=== PATIENT | female | born 1965 | race Caucasian/White ===

== ENCOUNTER 2022-06-12 10:45 | Observation (INO) | payer BC ==
[2022-06-12] MEDS ORDERED: SODIUM CHLORIDE 0.9% 1,000 ML IV STA (11:20)
[2022-06-12] MEDS ORDERED: MAG HYDROX/AL HYDROX/SIMETH 30 ML, HYOSCYAMINE ELIXIR 10 ML, LIDOCAINE VISCOUS 2% 10 ML PO STA ×3 (11:21)
--- NOTE | 2022-06-12 11:24 | ED ---
Abdominal Pain HPI - General Chief Complaint: Abdominal Pain Stated Complaint: back pain Time Seen by Provider: 06/12/22 11:12 Source: patient, RN notes reviewed Mode of arrival: ambulatory Limitations: no limitations - History of Present Illness Initial Comments: 56-year-old female presents emergency department chief complaint of epigastric pain 3 weeks. She states that the pain has been constant for the past 3 weeks. She states nothing makes it worse. She reports that she was taking Motrin which occasionally helps but in the past 3 days she has developed nausea and vomiting in the Motrin no longer helps. Denies fever. Denies prior abdominal surgeries. She states that she drinks socially but hasn't been drinking since the pain started. She states she is otherwise healthy and takes no daily medications. - Related Data Home Medications Medication Instructions Recorded Confirmed No Known Home Medications 06/12/22 06/12/22 Allergies Allergy/AdvReac Type Severity Reaction Status Date / Time No Known Allergies Allergy Verified 06/12/22 15:29 Review of Systems ROS Statement: Those systems with pertinent positive or pertinent negative responses have been documented in the HPI. ROS Other: All systems not noted in ROS Statement are negative. Past Medical History Past Medical History: No Reported History History of Any Multi-Drug Resistant Organisms: None Reported Past Surgical History: No Surgical Hx Reported Past Psychological History: No Psychological Hx Reported Smoking Status: Former smoker Past Alcohol Use History: None Reported Past Drug Use History: None Reported General Exam Limitations: no limitations General appearance: alert, in no apparent distress Head exam: Present: atraumatic, normocephalic, normal inspection Eye exam: Present: normal appearance, PERRL, EOMI. Absent: scleral icterus, conjunctival injection, periorbital swelling Respiratory exam: Present: normal lung sounds bilaterally. Absent: respiratory distress, wheezes, rales, rhonchi, stridor Cardiovascular Exam: Present: normal rhythm, tachycardia GI/Abdominal exam: Present: distended, tenderness (RUQ ), normal bowel sounds. Absent: guarding, rebound, rigid Rectal exam: Present: heme (+) stool Back exam: Present: normal inspection Neurological exam: Present: alert, oriented X3 Psychiatric exam: Present: normal affect, normal mood Skin exam: Present: warm, dry, intact, normal color. Absent: rash Course Vital Signs 06/12/22 06/12/22 06/12/22 11:01 11:12 11:17 Temperature 98.2 F Pulse Rate 110 H 112 H Respiratory 18 18 Rate Blood Pressure 168/86 157/99 O2 Sat by Pulse 98 97 95 Oximetry 06/12/22 06/12/22 06/12/22 11:20 11:30 11:40 Temperature Pulse Rate 111 H 107 H 109 H Respiratory Rate Blood Pressure 157/99 157/99 163/85 O2 Sat by Pulse 96 93 L Oximetry 06/12/22 06/12/22 06/12/22 11:50 12:00 12:10 Temperature Pulse Rate 94 98 97 Respiratory Rate Blood Pressure 163/85 163/85 142/92 O2 Sat by Pulse 92 L 98 96 Oximetry 06/12/22 06/12/22 06/12/22 12:20 12:30 12:40 Temperature Pulse Rate 95 96 98 Respiratory Rate Blood Pressure 142/92 142/92 154/91 O2 Sat by Pulse 93 L 95 95 Oximetry 06/12/22 06/12/22 06/12/22 12:50 13:00 13:10 Temperature Pulse Rate 98 100 Respiratory Rate Blood Pressure 154/91 154/91 180/107 O2 Sat by Pulse 71 L 97 Oximetry 06/12/22 06/12/22 06/12/22 13:20 13:30 13:40 Temperature Pulse Rate Respiratory Rate Blood Pressure 180/107 154/112 139/83 O2 Sat by Pulse 94 L 95 92 L Oximetry 06/12/22 06/12/22 06/12/22 13:50 14:00 14:10 Temperature Pulse Rate Respiratory Rate Blood Pressure 139/83 139/83 142/96 O2 Sat by Pulse 92 L 95 95 Oximetry 06/12/22 06/12/22 06/12/22 14:20 14:30 14:40 Temperature Pulse Rate Respiratory Rate Blood Pressure 142/96 142/96 135/83 O2 Sat by Pulse 95 96 Oximetry 06/12/22 06/12/22 06/12/22 14:50 15:00 15:10 Temperature Pulse Rate Respiratory Rate Blood Pressure 135/83 135/83 179/95 O2 Sat by Pulse 97 Oximetry 06/12/22 06/12/22 06/12/22 15:20 15:30 15:40 Temperature Pulse Rate 114 H 117 H 116 H Respiratory Rate Blood Pressure 179/95 179/95 156/92 O2 Sat by Pulse 96 96 99 Oximetry 06/12/22 06/12/22 06/12/22 15:50 15:54 16:00 Temperature Pulse Rate 120 H 120 H 123 H Respiratory 18 Rate Blood Pressure 156/92 144/102 144/102 O2 Sat by Pulse 95 95 95 Oximetry 06/12/22 06/12/22 06/12/22 16:10 16:20 16:30 Temperature Pulse Rate 116 H 118 H Respiratory Rate Blood Pressure 143/89 143/89 143/89 O2 Sat by Pulse 95 95 95 Oximetry 06/12/22 06/12/22 06/12/22 16:40 16:50 17:00 Temperature Pulse Rate 115 H 116 H 123 H Respiratory Rate Blood Pressure 139/91 139/91 139/91 O2 Sat by Pulse 96 96 95 Oximetry 06/12/22 06/12/22 06/12/22 17:10 17:20 17:30 Temperature Pulse Rate 117 H 118 H 114 H Respiratory Rate Blood Pressure 140/100 140/100 140/100 O2 Sat by Pulse 96 94 L 94 L Oximetry 06/12/22 06/12/22 06/12/22 17:40 17:50 18:00 Temperature Pulse Rate 116 H 112 H 116 H Respiratory Rate Blood Pressure 154/87 154/87 154/87 O2 Sat by Pulse 95 95 94 L Oximetry 06/12/22 18:10 Temperature Pulse Rate 109 H Respiratory Rate Blood Pressure 140/97 O2 Sat by Pulse 97 Oximetry Medical Decision Making - Medical Decision Making Was pt. sent in by a medical professional or institution (, PA, PHARMACIST ASSISTANT, urgent care, hospital, or skilled nursing...) When possible be specific @ -No Did you speak to anyone other than the patient for history (EMS, parent, family, police, friend...)? What history was obtained from this source @ -No Did you review nursing and triage notes (agree or disagree)? Why? @ -I reviewed and agree with nursing and triage notes Were old charts reviewed (outside hosp., previous admission, EMS record, old EKG, old radiological studies, urgent care reports/EKG's, skilled nursing records)? Report findings @ -No old charts were reviewed Differential Diagnosis (chest pain, altered mental status, abdominal pain women, abdominal pain men, vaginal bleeding, weakness, fever, dyspnea, syncope, headache, dizziness, GI bleed, back pain, seizure, CVA, palpatations, mental health, musculoskeletal)? @ -Differential Abdominal Pain Women: Appendicitis, Cholecystitis, diverticulosis, ischemic bowel, pancreatitis, hepatitis, UTI, gastroenteritis, AAA, incarcerated hernia, bowel obstruction, constipation, inflammatory bowel, hepatitis, peptic ulcer disease, splenic infarction, perforated viscus, vulvitis, ovarian torsion, PID, kidney stone, placenta abruption, this is not meant to be an all-inclusive list] EKG interpreted by me (3pts min.). @ -None X-rays interpreted by me (1pt min.). @ -None done CT interpreted by me (1pt min.). 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 min.). @ -Ultrasound of the gallbladder showed hepatomegaly with multiple hypoechoic masses findings strongly suggestive of metastatic disease, gallstones with abnormal gallbladder wall thickening, acute cholecystitis cannot be excluded What testing was considered but not performed or refused? (CT, X-rays, U/S, labs)? Why? @ -None What meds were considered but not given or refused? Why? @ -None Did you discuss the management of the patient with other professionals (professionals i.e. , PA, PHARMACIST ASSISTANT, lab, RT, psych nurse, bilingual social worker, divorce lawyer, teacher, recruitment officer, child welfare caseworker)? Give summary @ -Yes, case was discussed with Dr. Rudolph who is willing to see the patient. Case discussed with Dr. Paul who is accepting of the admission. Was smoking cessation discussed for >3mins.? @ -No Was critical care preformed (if so, how long)? @ -No Were there social determinants of health that impacted care today? How? (Homelessness, low income, unemployed, alcoholism, drug addiction, t ransportation, low edu. Level, literacy, decrease access to med. care, detention, rehab)? @ -No Was there de-escalation of care discussed even if they declined (Discuss DNR or withdrawal of care, Hospice)? DNR status @ -No What co-morbidities impacted this encounter? (DM, HTN, Smoking, COPD, CAD, Cancer, CVA, ARF, Chemo, Hep., AIDS, mental health diagnosis, sleep apnea, morbid obesity)? @ -None Was patient admitted / discharged? Hospital course, mention meds given and route, prescriptions, significant lab abnormalities, going to OR and other pertinent info. @ -Admitted. Patient presented to the emergency department with chief complaint of upper abdominal pain 3 weeks. Patient was administered a GI cocktail, 1 L fluids, and Toradol 15mg. patient states that her pain improved after this. CBC showed WBC 16.3, hemoglobin 9.9, hematocrit 35.2, neutrophils 13.6; CMP showed sodium 135, potassium 4.0, BUN 12, creatinine 0.41, AST 46, AST 41, alk phos 164; UA showed 2+ ketones, large leukocyte esterase, WBCs 20; stool occult blood was positive; ultrasound of the gallbladder showed hepatomegaly with multiple hypoechoic masses, mild gallbladder wall thickening. 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 My attending, Dr. Guevara, discussed the case with Dr. Rudolph and Dr. Paul. Patient admitted for treatment of cholecystitis and urinary tract infection with consults to general surgery and oncology. Undiagnosed new problem with uncertain prognosis? @ -No Drug Therapy requiring intensive monitoring for toxicity (Heparin, Nitro, Insulin, Cardizem)? @ -No Were any procedures done? @ -No Diagnosis/symptom? @ -abdominal pain Acute, or Chronic, or Acute on Chronic? @ -Acute Uncomplicated (without systemic symptoms) or Complicated (systemic symptoms)? @ -default Side effects of treatment? @ -No Exacerbation, Progression, or Severe Exacerbation? @ -No Poses a threat to life or bodily function? How? (Chest pain, [place], [place], pneumonia, PE, COPD, DKA, ARF, appy, cholecystitis, CVA, Diverticulitis, Homicidal, Suicidal, threat to staff... and all critical care pts) @ - Diagnosis/symptom? @ -Urinary tract infection Acute, or Chronic, or Acute on Chronic? @ -Acute Uncomplicated (without systemic symptoms) or Complicated (systemic symptoms)? @ -default Side effects of treatment? @ -none Exacerbation, Progression, or Severe Exacerbation] @ -no Poses a threat to life or bodily function? @ -no - Lab Data Result diagrams: 06/12/22 11:37 06/12/22 11:37 Lab Results 06/12/22 06/12/22 06/12/22 Range/Units 11:37 11:37 11:37 WBC 16.3 H (3.8-10.6) k/uL RBC 5.28 (3.80-5.40) m/uL Hgb 9.9 L (11.4-16.0) gm/dL Hct 35.2 (34.0-46.0) % MCV 66.7 L (80.0-100.0) fL MCH 18.8 L (25.0-35.0) pg MCHC 28.2 L (31.0-37.0) g/dL RDW 18.2 H (11.5-15.5) % Plt Count 423 (150-450) k/uL MPV 7.8 Neutrophils % 84 % Lymphocytes % 7 % Monocytes % 5 % Eosinophils % 0 % Basophils % 0 % Neutrophils # 13.6 H (1.3-7.7) k/uL Lymphocytes # 1.1 (1.0-4.8) k/uL Monocytes # 0.9 (0-1.0) k/uL Eosinophils # 0.0 (0-0.7) k/uL Basophils # 0.0 (0-0.2) k/uL Hypochromasia Marked Anisocytosis Slight Microcytosis Marked PT (9.0-12.0) sec INR (<1.2) APTT (22.0-30.0) sec Sodium 135 L (137-145) mmol/L Potassium 4.0 (3.5-5.1) mmol/L Chloride 98 (98-107) mmol/L Carbon Dioxide 26 (22-30) mmol/L Anion Gap 11 mmol/L BUN 12 (7-17) mg/dL Creatinine 0.41 L (0.52-1.04) mg/dL Est GFR (CKD-EPI)AfAm >90 (>60 ml/min/1.73 sqM) Est GFR (CKD-EPI)NonAf >90 (>60 ml/min/1.73 sqM) Glucose 105 H (74-99) mg/dL Plasma Lactic Acid [place] 1.3 (0.7-2.0) mmol/L Calcium 8.6 (8.4-10.2) mg/dL Total Bilirubin 0.7 (0.2-1.3) mg/dL AST 46 H (14-36) U/L ALT 41 H (4-34) U/L Alkaline Phosphatase 164 H (38-126) U/L Total Protein 5.9 L (6.3-8.2) g/dL Albumin 3.1 L (3.5-5.0) g/dL Amylase 32 (30-110) U/L Lipase 22 L (23-300) U/L Urine Color Urine Appearance (Clear) Urine pH (5.0-8.0) Ur Specific [place] (1.001-1.035) Urine Protein (Negative) Urine Glucose (UA) (Negative) Urine Ketones (Negative) Urine Blood (Negative) Urine Nitrite (Negative) Urine Bilirubin (Negative) Urine Urobilinogen (<2.0) mg/dL Ur Leukocyte Esterase (Negative) Urine RBC (0-5) /hpf Urine WBC (0-5) /hpf Ur Squamous Epith Cells (0-4) /hpf Urine Bacteria (None) /hpf Urine Mucus (None) /hpf Stool Occult Blood (Negative) 06/12/22 06/12/22 06/12/22 Range/Units 13:15 13:16 14:32 WBC (3.8-10.6) k/uL RBC (3.80-5.40) m/uL Hgb (11.4-16.0) gm/dL Hct (34.0-46.0) % MCV (80.0-100.0) fL MCH (25.0-35.0) pg MCHC (31.0-37.0) g/dL RDW (11.5-15.5) % Plt Count (150-450) k/uL MPV Neutrophils % % Lymphocytes % % Monocytes % % Eosinophils % % Basophils % % Neutrophils # (1.3-7.7) k/uL Lymphocytes # (1.0-4.8) k/uL Monocytes # (0-1.0) k/uL Eosinophils # (0-0.7) k/uL Basophils # (0-0.2) k/uL Hypochromasia Anisocytosis Microcytosis PT 10.9 (9.0-12.0) sec INR 1.0 (<1.2) APTT 22.2 (22.0-30.0) sec Sodium (137-145) mmol/L Potassium (3.5-5.1) mmol/L Chloride (98-107) mmol/L Carbon Dioxide (22-30) mmol/L Anion Gap mmol/L BUN (7-17) mg/dL Creatinine (0.52-1.04) mg/dL Est GFR (CKD-EPI)AfAm (>60 ml/min/1.73 sqM) Est GFR (CKD-EPI)NonAf (>60 ml/min/1.73 sqM) Glucose (74-99) mg/dL Plasma Lactic Acid [place] (0.7-2.0) mmol/L Calcium (8.4-10.2) mg/dL Total Bilirubin (0.2-1.3) mg/dL AST (14-36) U/L ALT (4-34) U/L Alkaline Phosphatase (38-126) U/L Total Protein (6.3-8.2) g/dL Albumin (3.5-5.0) g/dL Amylase (30-110) U/L Lipase (23-300) U/L Urine Color Yellow Urine Appearance Cloudy H (Clear) Urine pH 5.5 (5.0-8.0) Ur Specific [place] 1.025 (1.001-1.035) Urine Protein Trace H (Negative) Urine Glucose (UA) Negative (Negative) Urine Ketones 2+ H (Negative) Urine Blood Negative (Negative) Urine Nitrite Negative (Negative) Urine Bilirubin Negative (Negative) Urine Urobilinogen 6.0 (<2.0) mg/dL Ur Leukocyte Esterase Large H (Negative) Urine RBC 4 (0-5) /hpf Urine WBC 20 H (0-5) /hpf Ur Squamous Epith Cells 3 (0-4) /hpf Urine Bacteria Rare H (None) /hpf Urine Mucus Many H (None) /hpf Stool Occult Blood Positive H (Negative) Disposition Clinical Impression: Abdominal pain, Urinary tract infection Disposition: ADMITTED IP TO THIS HOSP Condition: Stable Is patient prescribed a controlled substance at d/c from ED?: No Time of Disposition: 17:06
[2022-06-12 11:54] LABS: Anisocytosis Slight; Basophils % (A) 0 %; Eosinophils % (A) 0 %; HCT 35.2 % (34.0-46.0); HGB 9.9 gm/dL (11.4-16.0); Hypochromasia Marked; Lymphocytes # (A) 1.1 k/uL (1.0-4.8); Lymphocytes % (A) 7 %; MCH 18.8 pg (25.0-35.0); MCHC 28.2 g/dL (31.0-37.0); MCV 66.7 fL (80.0-100.0); Mean Platelet Volume 7.8; Microcytosis Marked; Monocytes # (A) 0.9 k/uL (0-1.0); Monocytes % (A) 5 %; Neutrophils # (A) 13.6 k/uL (1.3-7.7); Neutrophils % (A) 84 %; Platelet Count 423 k/uL (150-450); RBC 5.28 m/uL (3.80-5.40); RDW 18.2 % (11.5-15.5); WBC 16.3 k/uL (3.8-10.6)
[2022-06-12 12:18] LABS: ALT 41 U/L (4-34); AST 46 U/L (14-36); African American GFR (CKD) >90 (>60 ml/min/1.73 sqM); Albumin 3.1 g/dL (3.5-5.0); Alkaline Phosphatase 164 U/L (38-126); Amylase 32 U/L (30-110); Anion Gap 11 mmol/L; Blood Urea Nitrogen 12 mg/dL (7-17); Calcium 8.6 mg/dL (8.4-10.2); Carbon Dioxide 26 mmol/L (22-30); Chloride 98 mmol/L (98-107); Glucose 105 mg/dL (74-99); Lipase 22 U/L (23-300); Non-African American GFR(CKD) >90 (>60 ml/min/1.73 sqM); Sodium 135 mmol/L (137-145); Total Bilirubin 0.7 mg/dL (0.2-1.3); Total Protein 5.9 g/dL (6.3-8.2)
[2022-06-12] MEDS ORDERED: KETOROLAC 15 MG/ML 1 ML VIAL IVP STA (12:42)
[2022-06-12 14:00] LABS: Appearance,Urine Cloudy (Clear); Bacteria,Urine Rare /hpf; Bilirubin,Urine Negative (Negative); Blood,Urine Negative (Negative); Color,Urine Yellow; Glucose,Urine (UA) Negative (Negative); Ketones,Urine 2+ (Negative); Leukocyte Esterase,Urine Large (Negative); Mucus,Urine Many /hpf; Nitrite,Urine Negative (Negative); PH, Urine 5.5 (5.0-8.0); Protein,Urine Trace (Negative); RBC,Urine 4 /hpf (0-5); Specific Gravity,Urine 1.025 (1.001-1.035); Squamous Epithelial Cell,Urine 3 /hpf (0-4); WBC,Urine 20 /hpf (0-5)
--- NOTE | 2022-06-12 14:17 | US ---
EXAMINATION TYPE: US gallbladder DATE OF EXAM: 06/12/2022 COMPARISON: NONE CLINICAL INDICATION: Female, 56 years old with history of upper abd pain; Abdominal pain x 3 weeks. TECHNIQUE: Multiple sonographic images of the right upper quadrant are obtained. FINDINGS: EXAM MEASUREMENTS: Liver Length: 19.6 cm Gallbladder Wall: Focal area appears thickened measured in sagittal at 0.46 cm CBD: Obscured Right Kidney: 12.6 x 6.6 x 6.3 cm HEALTH POLICY ANALYST NOTES: *Limited due to gas. Pancreas: Not well seen. Portions seen appear hyperechoic. Liver: Enlarged. Numerous hypoechoic lesions were seen throughout the right and left liver. Larges t lesion seen was near the gallbladder and measures 5.0 x 3.9 x 3.3 cm. Gallbladder: *Multiple hyperechoic areas with shadowing seen throughout the gallbladder. Evidence for sonographic Carbone's sign: No CBD: Obscured Right Kidney: Slightly enlarged. No hydronephrosis or masses seen Visualized portion of Pancreas within normal limits. Visualized liver is enlarged with multiple heter ogeneous hypoechoic masses. The gallbladder has mobile shadowing intraluminal gallstones. There is mi ld gallbladder wall thickening up to 5 mm. No right-sided hydronephrosis. IMPRESSION: Hepatomegaly with multiple hypoechoic masses. Findings are strongly suggestive of metasta tic disease. Follow-up advised. Gallstones with abnormal gallbladder wall thickening. Acute cholecyst itis cannot be excluded. Consider HIDA scan evaluation.
[2022-06-12 14:58] LABS: Partial Thromboplastin Time 22.2 sec (22.0-30.0); Prothrombin Time 10.9 sec (9.0-12.0)
--- NOTE | 2022-06-12 15:11 | CT ---
EXAMINATION TYPE: CT abdomen pelvis w con CT DLP: 1675.9 mGycm, Automated exposure control for dose reduction was used. DATE OF EXAM: 06/12/2022 2:57 PM COMPARISON: Ultrasound 06/12/2022 CLINICAL INDICATION:Female, 56 years old with history of hepatic mass; abdominal pain TECHNIQUE: Axial CT of the abdomen and pelvis. Sagittal and coronal reformats were created on a [employer] workstation. Contrast used:100 mL of Isovue 300 with IV Contrast, Oral contrast used: without Oral Contrast FINDINGS: LOWER CHEST: Unremarkable ABDOMEN LIVER: r diffuse hypodensities are seen throughout the liver parenchyma largest in the right hepatic lobe measuring up to 3.3 x 2.7 cm. The largest in the left hepatic lobe measuring up to 3.4 x 2.9 cm. There is greater than 50 lesions. No evidence of ductal dilation. GALLBLADDER AND BILE DUCTS: Multiple gallstones are present. PANCREAS: Unremarkable. SPLEEN: Unremarkable. ADRENAL GLANDS: Unremarkable. KIDNEYS AND URETERS: Nonobstructing left 4 mm calculus no hydronephrosis. Left subcentimeter probable renal cysts. PELVIS BLADDER: Unremarkable REPRODUCTIVE: Uterus has a lobulated contour with large posterior fibroid change measuring up to 9.2 x 5.5 cm. ABDOMEN & PELVIS STOMACH AND BOWEL: No evidence of bowel obstruction. Diffuse gastric wall thickening along the lesser curvature measuring up to 3.6 centimeters in thickness and measuring at least 9.5 cm in length. PERITONEUM/RETROPERITONEUM: No evidence of pneumoperitoneum or free fluid. VASCULATURE: No evidence of aortic aneurysm. MUSCULOSKELETAL: No acute osseous abnormalities LYMPH NODES: Multiple suspicious lymph nodes are seen throughout the gastrohepatic ligament, example includes 12 mm series 201 image 19 additional 13 mm also present in short axis. Few lymph nodes anter ior to the stomach also present measuring 17 mm in short axis series 201 image 35. SOFT TISSUE/ABDOMINAL WALL: Unremarkable IMPRESSION: 1. Gastric wall thickening compatible with primary gastric malignancy with metastatic disease to [place] and intra-abdominal lymph nodes. 2. Cholelithiasis. 3. Fibroid uterus.
[2022-06-12] MEDS ORDERED: PANTOPRAZOLE 40 MG/10 ML VIAL IVP STA (15:28)
[2022-06-12] MEDS ORDERED: MORPHINE SULFATE 4 MG/ML SYRINGE IVP STA (15:28)
[2022-06-12] MEDS ORDERED: AMPICILLIN-SULBACTAM 3 GM in SODIUM CHLORIDE 0.9% 100 ML IVPB STA (15:29)
[2022-06-12] MEDS ORDERED: ONDANSETRON 4 MG/2 ML VIAL IVP STA (15:29)
[2022-06-12] MEDS ORDERED: NALOXONE 0.4 MG/ML 1 ML VIAL IV PRN (15:46)
[2022-06-12] MEDS ORDERED: ONDANSETRON 4 MG/2 ML VIAL IVP PRN (15:47)
[2022-06-12] MEDS ORDERED: MORPHINE SULFATE 4 MG/ML SYRINGE IV PRN (15:47)
[2022-06-12] MEDS: ACETAMINOPHEN TAB 325 MG TAB PO PRN (20:35)
[2022-06-13] MEDS: ACETAMINOPHEN TAB 325 MG TAB PO PRN ×2 (02:30→10:28)
[2022-06-13 08:04] VITALS: BP 148/88; PULSE 92; RESP 18; TEMP 97.7
[2022-06-13] MEDS ORDERED: PANTOPRAZOLE 40 MG/10 ML VIAL IVP SCH (09:00)
[2022-06-13] MEDS ORDERED: PROPOFOL 10 MG/ML 20 ML VIAL IV ONE (09:36)
[2022-06-13] MEDS ORDERED: IV FLUID CONTINUATION 1,000 ML IV ONE (09:43)
--- NOTE | 2022-06-13 09:43 | P.GSCN ---
History of Present Illness Consult date: 06/13/22 Reason for Consult: Epigastric pain History of present illness: 56-year-old female presents to the hospital complaining of epigastric pain that radiates to the back. She has had frequent episodes of vomiting. She was taken Motrin for about 3-4 weeks with some improvement initially but lately is worse. Patient came to the ER yesterday for evaluation. Labs showed anemia, leukocytosis, and elevated liver enzymes. CAT scan was performed showing multiple hepatic lesions and thickened gastric wall worrisome for metastatic malignancy. We were consulted for upper endoscopy. Review of Systems The patient denies any acute changes in vision or hearing, no dysphagia or odynophagia, no chest pain or shortness of breath, no dysuria or hematuria, no headache, no runny nose, no rectal bleeding or melena, no unexplained weight loss Past Medical History Past Medical History: No Reported History History of Any Multi-Drug Resistant Organisms: None Reported Past Surgical History: No Surgical Hx Reported Past Psychological History: No Psychological Hx Reported Smoking Status: Former smoker Past Alcohol Use History: None Reported Past Drug Use History: None Reported Medications and Allergies Home Medications Medication Instructions Recorded Confirmed Type No Known Home Medications 06/12/22 06/12/22 History Allergies Allergy/AdvReac Type Severity Reaction Status Date / Time No Known Allergies Allergy Verified 06/12/22 15:29 Surgical - Exam Vital Signs Temp Pulse Resp BP Pulse Ox 98.2 F 110 H 18 168/86 98 06/12/22 11:01 06/12/22 11:01 06/12/22 11:01 06/12/22 11:01 06/12/22 11:01 Physical exam: General: Well-developed, well-nourished HEENT: Normocephalic, sclerae nonicteric Abdomen: Mild epigastric tenderness, nondistended Extremities: No edema Neuro: Alert and oriented Results - Labs 06/12/22 11:37 06/12/22 11:37 Abnormal Lab Results - Last 24 Hours (Table) 06/12/22 06/12/22 06/12/22 Range/Units 11:37 11:37 13:15 WBC 16.3 H (3.8-10.6) k/uL Hgb 9.9 L (11.4-16.0) gm/dL MCV 66.7 L (80.0-100.0) fL MCH 18.8 L (25.0-35.0) pg MCHC 28.2 L (31.0-37.0) g/dL RDW 18.2 H (11.5-15.5) % Neutrophils # 13.6 H (1.3-7.7) k/uL Sodium 135 L (137-145) mmol/L Creatinine 0.41 L (0.52-1.04) mg/dL Glucose 105 H (74-99) mg/dL AST 46 H (14-36) U/L ALT 41 H (4-34) U/L Alkaline Phosphatase 164 H (38-126) U/L Total Protein 5.9 L (6.3-8.2) g/dL Albumin 3.1 L (3.5-5.0) g/dL Lipase 22 L (23-300) U/L Urine Appearance Cloudy H (Clear) Urine Protein Trace H (Negative) Urine Ketones 2+ H (Negative) Ur Leukocyte Esterase Large H (Negative) Urine WBC 20 H (0-5) /hpf Urine Bacteria Rare H (None) /hpf Urine Mucus Many H (None) /hpf Stool Occult Blood (Negative) 06/12/22 Range/Units 13:16 WBC (3.8-10.6) k/uL Hgb (11.4-16.0) gm/dL MCV (80.0-100.0) fL MCH (25.0-35.0) pg MCHC (31.0-37.0) g/dL RDW (11.5-15.5) % Neutrophils # (1.3-7.7) k/uL Sodium (137-145) mmol/L Creatinine (0.52-1.04) mg/dL Glucose (74-99) mg/dL AST (14-36) U/L ALT (4-34) U/L Alkaline Phosphatase (38-126) U/L Total Protein (6.3-8.2) g/dL Albumin (3.5-5.0) g/dL Lipase (23-300) U/L Urine Appearance (Clear) Urine Protein (Negative) Urine Ketones (Negative) Ur Leukocyte Esterase (Negative) Urine WBC (0-5) /hpf Urine Bacteria (None) /hpf Urine Mucus (None) /hpf Stool Occult Blood Positive H (Negative) Diabetes panel 05/04/23 Range/Units 11:37 Sodium 135 L (137-145) mmol/L Potassium 4.0 (3.5-5.1) mmol/L Chloride 98 (98-107) mmol/L Carbon Dioxide 26 (22-30) mmol/L BUN 12 (7-17) mg/dL Creatinine 0.41 L (0.52-1.04) mg/dL Glucose 105 H (74-99) mg/dL Calcium 8.6 (8.4-10.2) mg/dL AST 46 H (14-36) U/L ALT 41 H (4-34) U/L Alkaline Phosphatase 164 H (38-126) U/L Total Protein 5.9 L (6.3-8.2) g/dL Albumin 3.1 L (3.5-5.0) g/dL Calcium panel 06/12/22 Range/Units 11:37 Calcium 8.6 (8.4-10.2) mg/dL Albumin 3.1 L (3.5-5.0) g/dL Pituitary panel 06/12/22 Range/Units 11:37 Sodium 135 L (137-145) mmol/L Potassium 4.0 (3.5-5.1) mmol/L Chloride 98 (98-107) mmol/L Carbon Dioxide 26 (22-30) mmol/L BUN 12 (7-17) mg/dL Creatinine 0.41 L (0.52-1.04) mg/dL Glucose 105 H (74-99) mg/dL Calcium 8.6 (8.4-10.2) mg/dL Adrenal panel 06/12/22 Range/Units 11:37 Sodium 135 L (137-145) mmol/L Potassium 4.0 (3.5-5.1) mmol/L Chloride 98 (98-107) mmol/L Carbon Dioxide 26 (22-30) mmol/L BUN 12 (7-17) mg/dL Creatinine 0.41 L (0.52-1.04) mg/dL Glucose 105 H (74-99) mg/dL Calcium 8.6 (8.4-10.2) mg/dL Total Bilirubin 0.7 (0.2-1.3) mg/dL AST 46 H (14-36) U/L ALT 41 H (4-34) U/L Alkaline Phosphatase 164 H (38-126) U/L Total Protein 5.9 L (6.3-8.2) g/dL Albumin 3.1 L (3.5-5.0) g/dL Assessment and Plan (1) Abdominal pain Narrative/Plan: Will proceed with upper endoscopy at this time. Current Visit: Yes Status: Acute Code(s): R10.9 - UNSPECIFIED ABDOMINAL PAIN SNOMED Code(s): 59003568
--- NOTE | 2022-06-13 10:13 | P.PCN ---
Date of Procedure: 06/13/22 Procedure(s) Performed: Preoperative Dx: Epigastric pain, gastric mass Postoperative Dx: Large gastric mass Procedure: EGD with Bx Anesthesia: Sedation Endoscopist: Dr. Rudolph Specimens: Gastric mass Endoscopic Procedure: The patient was on the endoscopy table in the left decubitus position. The Olympus gastroscope was inserted into the oropharynx and passed under direct visualization to the region of the third portion of the duodenum. From that point the scope was slowly withdrawn inspecting all day[place] faces carefully. There were no neoplastic inflammatory or polypoid lesions throughout the duodenum. The pylorus was widely patent. The stomach was c Retroflexion revealed a normal hiatus. The esophagus was then carefully examined. There were no neoplastic inflammatory or polypoid lesions throughout the visualized esophagus. The patient was then taken to the recovery room in stable condition per anesthesia guidelines. Recommendations: Await biopsy results. Await oncologic evaluation. May resume regular diet. Will discuss findings with patient and family.
[2022-06-13] MEDS ORDERED: KETOROLAC 15 MG/ML 1 ML VIAL IVP PRN (11:37)
--- NOTE | 2022-06-13 12:18 | P.HPIM ---
History of Present Illness 46-year-old female came in with epigastric pain radiating to the back along with nausea. Patient underwent the upper GI endoscopy. Patient is found to have large gastric mass which was biopsied. Patient will be started on diet oncology will evaluated the patient. Patient also has mildly elevated AST and ALT 46 and 41 respectively. REVIEW OF SYSTEMS: CONSTITUTIONAL: No fever, no malaise, no fatigue. HEENT: No recent visual problems or hearing problems. Denied any sore throat. CARDIOVASCULAR: No chest pain, orthopnea, PND, no palpitations, no syncope. PULMONARY: No shortness of breath, no cough, no hemoptysis. GASTROINTESTINAL: As mentioned in HPI NEUROLOGICAL: No headaches, no weakness, no numbness. HEMATOLOGICAL: Denies any bleeding or petechiae. GENITOURINARY: Denies any burning micturition, frequency, or urgency. MUSCULOSKELETAL/RHEUMATOLOGICAL: Denies any joint pain, swelling, or any muscle pain. ENDOCRINE: Denies any polyuria or polydipsia. The rest of the 14-point review of systems is negative. PHYSICAL EXAMINATION: GENERAL: The patient is alert and oriented x3, not in any acute distress. Well developed, well nourished. HEENT: Pupils are round and equally reacting to light. EOMI. No scleral icterus. No conjunctival pallor. Normocephalic, atraumatic. No pharyngeal erythema. No thyromegaly. CARDIOVASCULAR: S1 and S2 present. No murmurs, rubs, or gallops. PULMONARY: Chest is clear to auscultation, no wheezing or crackles. ABDOMEN: Soft, nontender, nondistended, normoactive bowel sounds. No palpable organomegaly. MUSCULOSKELETAL: No joint swelling or deformity. EXTREMITIES: No cyanosis, clubbing, or pedal edema. NEUROLOGICAL: Gross neurological examination did not reveal any focal deficits. SKIN: No rashes. Assessment and plan -Epigastric abdominal pain nausea vomiting: Patient is found to have gastric mass also has cholelithiasis and unsure whether this is continued awaiting her to her symptoms. Patient will be discharged on Protonix and tramadol for pain and patient will follow-up with oncology as an outpatient. If patient is able to tolerate diet patient will be discharged to follow up with surgery surgery as an outpatient for cholelithiasis. -Leukocytosis reactive secondary to above Patient will be discharged later today as mentioned over if she can tolerate the diet Past Medical History Past Medical History: No Reported History History of Any Multi-Drug Resistant Organisms: None Reported Past Surgical History: No Surgical Hx Reported Past Psychological History: No Psychological Hx Reported Smoking Status: Former smoker Past Alcohol Use History: None Reported Past Drug Use History: None Reported Medications and Allergies Home Medications Medication Instructions Recorded Confirmed Type Ketorolac [Toradol] 10 mg PO Q6HR #60 tab 06/13/22 Rx Allergies Allergy/AdvReac Type Severity Reaction Status Date / Time No Known Allergies Allergy Verified 06/12/22 15:29 Physical Exam Vitals: Vital Signs Temp Pulse Pulse Resp BP BP Pulse Ox 06/13/22 08:00 97.7 F 92 18 148/88 97 06/13/22 02:00 98.4 F 91 16 137/78 97 06/12/22 20:00 98.3 F 128 H 16 141/95 95 06/12/22 18:10 109 H 140/97 97 06/12/22 18:00 116 H 154/87 94 L 06/12/22 17:50 112 H 154/87 95 06/12/22 17:40 116 H 154/87 95 06/12/22 17:30 114 H 140/100 94 L 06/12/22 17:20 118 H 140/100 94 L 06/12/22 17:10 117 H 140/100 96 06/12/22 17:00 123 H 139/91 95 06/12/22 16:50 116 H 139/91 96 06/12/22 16:40 115 H 139/91 96 06/12/22 16:30 118 H 143/89 95 06/12/22 16:20 116 H 143/89 95 06/12/22 16:10 143/89 95 06/12/22 16:00 123 H 144/102 95 06/12/22 15:54 120 H 18 144/102 95 06/12/22 15:50 120 H 156/92 95 06/12/22 15:40 116 H 156/92 99 06/12/22 15:30 117 H 179/95 96 06/12/22 15:20 114 H 179/95 96 06/12/22 15:10 179/95 97 06/12/22 15:00 135/83 06/12/22 14:50 135/83 06/12/22 14:40 135/83 05/04/23 14:30 142/96 96 06/12/22 14:20 142/96 95 06/12/22 14:10 142/96 95 06/12/22 14:00 139/83 95 06/12/22 13:50 139/83 92 L 06/12/22 13:40 139/83 92 L 06/12/22 13:30 154/112 95 06/12/22 13:20 180/107 94 L 06/12/22 13:10 180/107 06/12/22 13:00 100 154/91 97 06/12/22 12:50 98 154/91 71 L 06/12/22 12:40 98 154/91 95 06/12/22 12:30 96 142/92 95 06/12/22 12:20 95 142/92 93 L Intake and Output 06/12/22 06/13/22 06/13/22 22:59 06:59 14:59 Intake Total 0 100 Balance 0 100 Intake: IV 100 Oral 0 Other: # Voids 2 Weight 93.44 kg Results CBC & Chem 7: 06/12/22 11:37 06/12/22 11:37 Labs: Abnormal Lab Results - Last 24 Hours (Table) 06/12/22 06/12/22 06/12/22 Range/Units 11:37 13:15 13:16 Sodium 135 L (137-145) mmol/L Creatinine 0.41 L (0.52-1.04) mg/dL Glucose 105 H (74-99) mg/dL AST 46 H (14-36) U/L ALT 41 H (4-34) U/L Alkaline Phosphatase 164 H (38-126) U/L Total Protein 5.9 L (6.3-8.2) g/dL Albumin 3.1 L (3.5-5.0) g/dL Lipase 22 L (23-300) U/L Urine Appearance Cloudy H (Clear) Urine Protein Trace H (Negative) Urine Ketones 2+ H (Negative) Ur Leukocyte Esterase Large H (Negative) Urine WBC 20 H (0-5) /hpf Urine Bacteria Rare H (None) /hpf Urine Mucus Many H (None) /hpf Stool Occult Blood Positive H (Negative) Thrombosis Risk Factor Assmnt - Choose All That Apply Any of the Below Risk Factors Present?: Yes Each Factor Represents 1 point: Age 41-60 years Each Risk Factor Represents 2 Points: Malignancy Thrombosis Risk Factor Assessment Total Risk Factor Score: 3 Thrombosis Risk Factor Assessment Level: Moderate Risk
--- NOTE | 2022-06-13 12:20 | P.DS ---
Providers Date of admission: 06/12/22 17:21 Attending physician: Arianna Paul Consults: 06/12/22 15:47 Consult Physician Routine Consulting Provider: William Rudolph Consult Reason/Comments: cholecystitis Do you want consulting provider notified?: Already Contacted Consult Physician Routine Consulting Provider: Yannick Bell Consult Reason/Comments: poss gastric ca w hepatic mets Do you want consulting provider notified?: Yes, Notify in am Primary care physician: Sharon Rand Hospital Course: Patient will be discharged today please refer to HPI for further details Patient Condition at Discharge: Stable Plan - Discharge Summary Discharge Rx Participant: No New Discharge Prescriptions: New Ketorolac [Toradol] 10 mg PO Q6HR #60 tab Omeprazole [PriLOSEC] 40 mg PO AC-BRKFST #14 cap Discharge Medication List Ketorolac [Toradol] 10 mg PO Q6HR #60 tab 06/13/22 [Rx] Omeprazole [PriLOSEC] 40 mg PO AC-BRKFST #14 cap 06/13/22 [Rx] Follow up Appointment(s)/Referral(s): Sharon Rand DO [Primary Care Provider] - 3 Days William Rudolph MD [Medical Doctor] - 1 Week Discharge Disposition: HOME SELF-CARE
--- NOTE | 2022-06-13 14:09 | P.CONS ---
History of Present Illness - Reason for Consult Consult date: 06/13/22 gastric mass Requesting physician: Luly Lara - Chief Complaint abdominal pain - History of Present Illness Patient is a 56-year-old female no significant medical history. We are consulted due to CT findings of gastric mass and liver hypodensities. Patient presented to the emergency room for persisting epigastric pain. Patient states pain was ongoing for approximately 3 weeks and states pain radiated to mid back with associated nausea and abdominal bloating. 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 Cholelithiasis. Fibroid uterus. Patient underwent EGD today with gastric mass biopsy. Path pending. Patient denies unintentional weight loss. She does report night sweats occasionally. Patient denies blood in stool and melena. Denies fever and chills. Patient states that she has never had EGD or colonoscopy in the past. Has also never had mammogram screenings. Reports grandfather had a history of lung cancer. Patient denies history of smoking. And drinks alcohol socially. Microcytic hypochromic anemia noted on CBC. Review of Systems 10 point ROS is negative except as stated in the HPI Past Medical History Past Medical History: No Reported History History of Any Multi-Drug Resistant Organisms: None Reported Past Surgical History: No Surgical Hx Reported Past Psychological History: No Psychological Hx Reported Smoking Status: Former smoker Past Alcohol Use History: None Reported Past Drug Use History: None Reported Medications and Allergies Home Medications Medication Instructions Recorded Confirmed Type Ketorolac [Toradol] 10 mg PO Q6HR #60 tab 06/13/22 Rx Omeprazole [PriLOSEC] 40 mg PO AC-BRKFST #14 cap 06/13/22 Rx Ondansetron Odt [Zofran Odt] 4 mg PO Q8HR PRN #30 tab 06/13/22 Rx Allergies Allergy/AdvReac Type Severity Reaction Status Date / Time No Known Allergies Allergy Verified 06/12/22 15:29 Physical Exam Vitals: Vital Signs Temp Pulse Pulse Resp BP BP Pulse Ox 06/13/22 08:00 97.7 F 92 18 148/88 97 06/13/22 02:00 98.4 F 91 16 137/78 97 06/12/22 20:00 98.3 F 128 H 16 141/95 95 06/12/22 18:10 109 H 140/97 97 06/12/22 18:00 116 H 154/87 94 L 06/12/22 17:50 112 H 154/87 95 06/12/22 17:40 116 H 154/87 95 06/12/22 17:30 114 H 140/100 94 L 06/12/22 17:20 118 H 140/100 94 L 06/12/22 17:10 117 H 140/100 96 06/12/22 17:00 123 H 139/91 95 06/12/22 16:50 116 H 139/91 96 06/12/22 16:40 115 H 139/91 96 06/12/22 16:30 118 H 143/89 95 06/12/22 16:20 116 H 143/89 95 06/12/22 16:10 143/89 95 06/12/22 16:00 123 H 144/102 95 06/12/22 15:54 120 H 18 144/102 95 06/12/22 15:50 120 H 156/92 95 06/12/22 15:40 116 H 156/92 99 06/12/22 15:30 117 H 179/95 96 06/12/22 15:20 114 H 179/95 96 06/12/22 15:10 179/95 97 06/12/22 15:00 135/83 06/12/22 14:50 135/83 06/12/22 14:40 135/83 06/12/22 14:30 142/96 96 06/12/22 14:20 142/96 95 06/12/22 14:10 142/96 95 06/12/22 14:00 139/83 95 Intake and Output 06/12/22 06/13/22 06/13/22 22:59 06:59 14:59 Intake Total 0 100 Balance 0 100 Intake: IV 100 Oral 0 Other: # Voids 2 Weight 93.44 kg - Constitutional General appearance: no acute distress, obese - EENT Eyes: anicteric sclerae, EOMI ENT: hearing grossly normal - Neck Neck: no lymphadenopathy - Respiratory Respiratory: bilateral: CTA - Cardiovascular Rhythm: regular Heart sounds: normal: S1, S2 Abnormal Heart Sounds: no systolic murmur, no diastolic murmur, no rub, no S3 Gallop, no S4 Gallop, no click, no other - Gastrointestinal General gastrointestinal: soft, no tenderness - Integumentary Integumentary: normal - Neurologic Neurologic: CNII-XII intact - Musculoskeletal Musculoskeletal: strength equal bilaterally - Psychiatric Psychiatric: A&O x's 3, appropriate affect, intact judgment & insight Results CBC & Chem 7: 06/12/22 11:37 06/12/22 11:37 Labs: Abnormal Lab Results - Last 24 Hours (Table) 06/12/22 Range/Units 13:15 Urine Appearance Cloudy H (Clear) Urine Protein Trace H (Negative) Urine Ketones 2+ H (Negative) Ur Leukocyte Esterase Large H (Negative) Urine WBC 20 H (0-5) /hpf Urine Bacteria Rare H (None) /hpf Urine Mucus Many H (None) /hpf CT scan - abdomen: report reviewed CT scan - pelvis: report reviewed Assessment and Plan (1) Gastric mass Current Visit: Yes Status: Acute Code(s): K31.89 - OTHER DISEASES OF STOMACH AND DUODENUM SNOMED Code(s): 963482389 Plan: Gastric mass: -CT abdomen and pelvis revealed gastric wall thickening 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 Cholelithiasis. Fibroid uterus. -EGD performed today, gastric mass biopsy obtained. Path pending -Will schedule outpatient follow-up, and pending path results will order staging imaging, NGS, PDL-1 and gaurdent testing. -Discussed plan with patient and she is agreeable. Anemia: -hemoglobin 9.9, hematocrit 35.2, MCV 66.7. CBC consistent with microcytic hypochromic anemia. -Anemia workup planned however patient is scheduled for discharge today and would rather have anemia workup done in the outpatient setting. Will schedule this at first clinic follow-up.
== END 2022-06-13 14:26 | disposition home or self-care (01) ==
LOC: EC 10:45 → INTOOBSV 17:21 → 5NMEDONC 17:21 → UNDODISIN 06-13 14:26
PROVIDERS: ADMIT Hospitalist; ATTEND Hospitalist
DX: C16.9 Malignant neoplasm of stomach, unspecified (principal); K80.20 Calculus of gallbladder without cholecystitis without obstruction; D50.9 Iron deficiency anemia, unspecified; N39.0 Urinary tract infection, site not specified; D25.9 Leiomyoma of uterus, unspecified; R74.01 Elevation of levels of liver transaminase levels; R16.0 Hepatomegaly, not elsewhere classified; R59.9 Enlarged lymph nodes, unspecified; Z87.891 Personal history of nicotine dependence; Z80.1 Family history of malignant neoplasm of trachea, bronchus and lung
CPT/HCPCS: 96376; 96361; 96374; 96375; 99285; 36415; 88305; 80053; 82150; 83605; 83690; 85025; 85610; 85730; 82272; 81001; 88342; 88341; 76705; 74177; 43239; G0378 ×2; J2405 ×2; J0295; J1885 ×2; J2704; C9113 ×2; Q9967; 96365; 96366